=== PATIENT | female | born 1995 | race Caucasian/White ===

== ENCOUNTER 2017-09-23 15:31 | Observation (INO) ==
[2017-09-23 16:06] LABS: Amphetamine Screen,Urine Negative ng/mL (Cutoff=1000); Barbiturate Screen,Urine Negative ng/mL (Cutoff=200); Benzodiazepines Screen,Urine Negative ng/mL (Cutoff=200); Cannabinoid Screen,Urine Negative ng/mL (Cutoff = 50); Cocaine Screen,Urine Negative ng/mL (Cutoff= 300); Opiate Screen,Urine Negative ng/mL (Cutoff=300); Phencyclidine Screen,Urine Negative ng/mL (Cutoff=25); Protein/Creatinine Ratio,Urine 0.17 mg/mg (0.00-0.20)
[2017-09-23 16:14] LABS: Alanine Aminotransferase 10 Units/L (7-52); Aspartate Amino Transferase 14 Units/L (13-39); BUN/Creatinine Ratio 24 (6-26); Blood Urea Nitrogen 11 mg/dL (6-20); Lactate Dehydrogenase 146 Units/L (140-271); Uric Acid 3.5 mg/dL (2.3-7.6); eGFR For African Americans > 60 (> 60); eGFR For Non-African Americans > 60 (> 60)
[2017-09-23 16:43] LABS: Basophils % 0.2 %; Eosinophils # 0.1 K/mcL (0.0-0.6); Eosinophils % 0.7 %; Hematocrit 37.1 % (35.3-44.9); Hemoglobin 12.4 g/dL (11.5-15.4); Immature Granulocytes % 1.4 % (0-4); Lymphocytes # 2.4 K/mcL (0.6-4.6); Lymphocytes % 20.1 %; Mean Corpuscular HGB Conc 33.4 g/dL (31.6-35.5); Mean Corpuscular Hemoglobin 32.3 pg (28.0-33.3); Mean Corpuscular Volume 96.6 fL (83.0-100.0); Mean Platelet Volume 11.3 fL (9.4-12.4); Monocytes # 0.9 K/mcL (0.0-1.3); Monocytes % 7.5 %; Neutrophils # 8.5 K/mcL (1.6-8.9); Platelet Count 230 K/mcL (140-400); Red Blood Count 3.84 M/mcL (3.82-4.97); Red Cell Distribution Width 12.8 % (11.5-14.5); Segmented Neutrophils % 70.1 %
--- NOTE | 2017-09-23 17:00 | OB/GYN Progress Note ---
Date of Encounter: 09/23/17 Time of Encounter: 16:51 - Assessment and Plan (1) 39 weeks gestation of Current Visit: Yes Status: Acute (2) Decreased movement Current Visit: Yes Status: Acute NST reactive, no decelerations. Good FM while in triage. Discharge home with precautions. Pt to follow-up for NST in office on Thursday. Qualifiers: Fetus number: single or unspecified fetus Trimester: third trimester Qualified Code(s): O36.8130 - Decreased movements, third trimester, not applicable or unspecified (3) Elevated blood pressure affecting in third trimester, antepartum Current Visit: Yes Status: Acute BP 140/90 in office. BP's all normal in triage. PIH labs all normal. Subjective - Subjective Principal diagnosis: decreased movement Interval history: Patient is alert and oriented presents to L&D from office with c/o decreased movements. NST reactive, 2 excels in 30 minutes, sent to L&D for further monitoring. Patient denies headache or blurred vision. Reports had discharge times two this am that was pinkish in color and dime size, denies any leakage of fluid. Reports she felt the baby started moving less last night around 1800. She does report movement 6 times in one hour and contractions 5 times in one hour. Denies any unusual pain or shortness of breath. Antepartum ROS: contractions, no loss of fluid, no vaginal bleeding Objective - Vital Signs Vital Signs: Intake and Output 09/23/17 09/23/17 09/23/17 07:59 15:59 23:59 Other: Weight 79.5 kg Patient Weight 09/23/17 23:59 Weight 79.5 kg - Exam FHR: category 1 FHR comments: NST reactive Auscultation: bilateral: normal Abdomen: Present: soft, gravid Uterus: Present: normal. Absent: tenderness - Labs Labs: Abnormal lab results WBC 12.1 K/mcL (4.3-11.1) H 09/23/17 15:40 Creatinine 0.45 mg/dL (0.60-1.20) L 09/23/17 15:40 Urine Total Protein 21 mg/dL (1-14) H 09/23/17 15:40
== END 2017-09-23 17:23 | disposition home or self-care (01) ==
LOC: 1NENULAB
PROVIDERS: ADMIT Registered Nurse; ATTEND Registered Nurse

== ENCOUNTER 2017-09-23 23:27 | Inpatient (IN) ==
--- NOTE | 2017-09-23 23:25 | OB/GYN History & Physical ---
Date of Encounter: 09/23/17 Time of Encounter: 23:19 Assessment and Plan (1) Spontaneous onset of labor Current visit: Yes Status: Acute SVE 3/100/-1 which has changed from 1cm earlier today. Bloody show noted BBOW GBS negative Admit for labor. Epidural if requested. Anticipate . (2) 39 weeks gestation of Current visit: No Status: Acute History of Present Illness Chief complaint: contractions HPI: Ms. Sewell is a 22 year old female presenting at 39w3d with c/o contractions that are back to back and painful. She denies LOF. She does report some bloody show. Good FM. This has been uncomplicated. Blood type A negative Rubella non-immune GBS negative Serologies negative Past Med Surg Social Fam HX - Past Medical History Medical history: asthma, GERD Psychiatric history: no psych history - Past Surgical History Surgical History: no surgical history - Social History Smoking Status: Never smoker Smokeless Tobacco Status: No Alcohol use: none Drug use: none - Family History Mother History Unknown: Yes Living Status: Still Living Hx Family Cardiac Disorders: No Hx Family Respiratory Disorders: No Hx Family Cancer: No Hx Family GI Disorders: No Hx Family Endocrine Disorder: No Hx Family Neuromuscular Disorders: No Hx Family Neurologic Disorders: No Hx Family HEENT Disorders: No Hx Family Autoimmune Disorders: No Obstetrical History - Pregnancies : 1 Medications and Allergies Albuterol Sulfate [Ventolin Hfa] 2 puff IN Q4H PRN 03/05/16 [History] Tablet 1 tab PO DAILY 09/23/17 [History] 3 Allergy/AdvReac Type Severity Reaction Status Date / Time No Known Allergies Allergy Verified 09/23/17 15:45 Review of System OB All systems PM: reviewed and no additional remarkable complaints except as stated Exam - Constitutional Constitutional: well developed, well nourished, no acute distress - HEENT HEENT: Mucus Membranes Moist - Lungs Respiratory exam: CTAB - Cardiovascular Cardiovascular exam: RRR, +S1, +S2 - Abdomen Abdomen: Present: gravid, non tender - Extremities Deep Tendon Reflex Grade: 2+ Normal - Cervix Dilation: 3 Effacement: 100 (BBOW) Station: -1 - Anus/Rectum Anus/Rectum: Present: normal perianal skin Results All other labs normal.
[~2017-09-23 23:27] MED LIST: *HR* Nalbuphine 10 MG/ML AMPUL IVP PRN; Famotidine 20 MG/2 ML VIAL IVP PRN; Metoclopramide 10 MG/2 ML VIAL IVP PRN; Naloxone 0.4 MG/ML INJ IVP PRN; Ondansetron 4 MG/2 ML VIAL IVP PRN
[2017-09-23] MEDS ORDERED: Ringers Solution, Lactated 1,000 ML IVC SCH (23:30)
[2017-09-24] MEDS ORDERED: Oxytocin 20 units/ LR 1000 mL 20 UNIT/1,000 ML BAG IVC ONE (00:19)
[2017-09-24] MEDS ORDERED: Epidural Premix (fent/bupiv) 110 ML EP SCH (01:00)
[2017-09-24] MEDS ORDERED: *HR* FentaNYL (PF) 100 MCG/2 ML VIAL EP ONE (01:00)
[2017-09-24] MEDS ORDERED: Bupivacaine-MPF 0.25% 10 ML VIAL EP ONE (01:00)
[2017-09-24] MEDS ORDERED: Epidural Premix (fent/bupiv) 110 ML EP ONE (01:05)
--- NOTE | 2017-09-24 01:42 | Anesthesia Evaluation PreOp ---
Date of Encounter: 09/24/17 Time of Encounter: 01:40 - Past History Planned Operation: NANCY Cardiac History: Denies any Significant Hx Pulmonary History: Asthma INFRASTRUCTURE PROJECT MANAGER History: Denies Any Significant HX Other Medical History: Denies Any Significant HX Anesthesia History: No Prior Anesthetic Complications (never had any procedure requiring NA or GA; denies family h/o GA complications) : Yes Test: Positive Alcohol Use: none Drug use: none Medications and Allergies Albuterol Sulfate [Ventolin Hfa] 2 puff IN Q4H PRN 03/05/16 [History] Tablet 1 tab PO DAILY 09/23/17 [History] 3 Allergy/AdvReac Type Severity Reaction Status Date / Time No Known Allergies Allergy Verified 09/23/17 15:45 - Meds/Allergy Pre-op Review Medications Reviewed: Yes Allergies Reviewed: Yes Beta Blockers on Current Med List: No Anesthesia Exam 133/81 HR 93, RR 24 O2 Sat Height 1.73 m Height 1.73 m Weight 78.744 kg Weight 78.642 kg NPO (# of Hours): solids > 5hrs Pain Scale: 10 Pain Scale Used: Curry-Hdz (Faces) - HEENT Pupil (Motor): Pupils equal Mallampati: II Teeth: Normal Oral Opening: Greater than 3 - INFRASTRUCTURE PROJECT MANAGER LOC: Oriented INFRASTRUCTURE PROJECT MANAGER Motor: Normal RUE, Normal LUE, Normal RLE, Normal LLE, Normal Face INFRASTRUCTURE PROJECT MANAGER Sensory: Normal: RUE, LUE, RLE, LLE, Face - Cardiac Rhythm: Regular Murmur: None - Pulmonary Breath Sounds: bilateral Clear Respiratory Effort: Symmetrical Anesthesia Assess/Plan ASA Score: 2 Modified [place] Scale for Level of Consciousness: Anixous, agitated or restless Anesthetic Plan: Regional Autologous Blood: No Monitoring Plan: Standard Monitors Recovery Plan: Other
--- NOTE | 2017-09-24 01:44 | Anesthesia Procedures ---
Date of Encounter: 09/24/17 Time of Encounter: 01:42 Procedures: Anesthesia - Epidural/Spinal Patient ID/Chart reviewed: Yes Patient examined: Yes OB Eval: Gestational age: 39 weeks 3 days OB Eval: : 1 OB Eval: Hx Para: 0 OB Eval: Dilated at (cm): 5 OB Eval: Contractions: Non-stressed pattern Consent Obtained: Yes Supplemental Oxygen: None/Room Air Site Prep: Aseptic Technique, Sterile prep and drape, Povidone-Iodine 1% Patient position: upright Local Anesthetic: Lidocaine 1% Amount of Local Anesthetic used: 3 Touhy Needle Gauge: 18 Touhy Needle Depth (cm): 4 Catheter Depth at Skin (cm): 9 Test Dose (1.5% Lido + Epi): Volume given (mls): 5 Test Dose Result: Negative Loading Dose: 0.25% Marcaine (mls): 5 Loading Dose: Fentanyl (mcg): 100 Loading Dose Administered: Thru Catheter Infusion Med: 0.125% Bupivacaine w/ 2 mcg/ml Fentanyl Infusion Rate (mls/hr): 14 (w/ demand bolus of 5mL q30min PRN) Catheter Secured in Place: Tegaderm, Tape Interspace Used: L3-L4 Loss of Resistance (SUMIT): Yes Blood: No CSF: No Paresthesia: No Procedure: successful on 2nd attempt Vitals + FHT's: please see [facility]'s electronic charting
[2017-09-24] MEDS ORDERED: *HR* Ropivacaine/PF 0.2% 20 ML VIAL EP ONE (01:56)
--- NOTE | 2017-09-24 02:42 | Anesthesia Progress Note ---
Date of Encounter: 09/24/17 Time of Encounter: 02:39 Anesthesia Note - Note Note: Pt still uncomfortable despite 100mcg fentanyl + 5mL of 0.25% bupivicaine initial bolus so at approximately 0200, another 5mL of 0.25% bupivicaine administered. At 0215, pt still uncomfortable and BP elevated so catheter pulled back to 8cm deejay at skin and 10mL of 0.2% ropivicaine administered. At 0225, pt reports R sided pain relief but feeling contractions on L side so patient positioned L side down and additional 10mL of 0.2% ropivicaine administered. At 0240 patient reports satisfactory labor analgesia. VSS 09/24/17 02:39
--- NOTE | 2017-09-24 05:54 | OB/GYN Procedure Note ---
Delivery - Delivery Date: 09/24/17 Provider: Shannan Livingston Intrapartum events: none Delivery induction: none Delivery monitor: external FHT, external uterine Anesthesia: epidural Estimated Blood Loss: 400 - (s) A Infant Delivery Date: 09/24/17 Delivery Time: 05:05 Presentation: vertex Position: RONY Route of delivery: Gender: Male Viability: Viable Pounds: 7 Ounces: 9 Weight Gram: 3420 kg at 1 minute: 9 at 5 mins: 9 Shoulder Dystocia: not encountered Specimens collected: cord blood Placenta: spontaneous, uterine exploration (small amount membrane manually removed) Cord: 3 umbilical vessels - Repair Episiotomy: none Laceration Description: Vaginal (left vaginal) - Complications Delivery complications: none Delivery comments: Pt presented in active labor and progressed normally to for viable male weighing 7lbs 9oz with apgars 9 at one minute and 9 at five minutes. After pulsations ceased the cord was clamped and cut and the placenta delivered spontaneous and intact. A small amount of membrane was manually removed. A left vaginal laceration was repaired with 2-0 Monocryl. EBL 400ml. Mother and baby stable in kangaroo care following delivery. - Disposition Mom disposition: stable in LDR [place] disposition: stable in LDR
[2017-09-24] MEDS ORDERED: Oxytocin 20 units/ LR 1000 mL 20 UNIT/1,000 ML BAG IVC SCH (08:08)
[2017-09-24] MEDS ORDERED: Acetaminophen 325 MG TABLET PO PRN (08:08)
[2017-09-24] MEDS ORDERED: Measles/Mumps/Rubella Vacc 0.5 ML VIAL SQ PRN (08:08)
[2017-09-24] MEDS ORDERED: Rho Immune Globulin 1,500 UNIT SYRINGE IM PRN (08:08)
[2017-09-24] MEDS ORDERED: Lanolin 28 GM TUBE TP PRN (08:08)
[2017-09-24] MEDS ORDERED: Benzocaine/Menthol 56 GM AEROSOL SPRAY TP PRN (08:08)
[2017-09-24] MEDS: Prenatal Vit/FA 1 EACH TABLET PO SCH (08:51)
[2017-09-24] MEDS: Ibuprofen 600 MG TABLET PO PRN ×2 (08:52→20:38)
[2017-09-24] MEDS ORDERED: Ondansetron ODT 4 MG TAB.RAPDIS SL PRN (18:38)
[2017-09-25 07:44] VITALS: BP 95/60
[2017-09-25] MEDS: Prenatal Vit/FA 1 EACH TABLET PO SCH (07:44)
--- NOTE | 2017-09-25 09:26 | Discharge Summary ---
Date of Encounter: 09/25/17 Time of Encounter: 09:24 - Discharge Diagnosis (1) Status post vaginal delivery Priority: Primary Status: Acute Comments: discharge home today follow up in office in 4-6 weeks (2) Breast feeding status of mother Priority: Secondary Status: Acute Comments: lactations support prn - Discharge Medications Home Medications: Albuterol Sulfate [Ventolin Hfa] 2 puff IN Q4H PRN 03/05/16 [History] Tablet 1 tab PO DAILY 09/23/17 [History] Benzocaine/Menthol [place] [Dermoplast [place]] 1 appl TP QID PRN aerosol 09/25/17 [Rx] Ibuprofen [Motrin] 600 mg PO Q6HR PRN tablet 09/25/17 [Rx] Lanolin 1 appl TP Q4HR PRN tube 09/25/17 [Rx] Vit/FA 1 each PO DAILY tablet 09/25/17 [Rx] Allergies/Adverse Reactions: 3 Allergy/AdvReac Type Severity Reaction Status Date / Time No Known Allergies Allergy Verified 09/23/17 15:45 Data Procedures and tests throughout hospitalization: Laboratory Tests 09/24/17 05:31 Screen NEGATIVE Baby's Blood Type O RH POSITIVE Mother's Blood Type A RH NEGATIVE Rhogam Indicated YES Rhogam Req for Mother 1 Date of admission: 09/23/17 23:28 Primary care physician: Ryan Castillo MD Consults: 09/24/17 08:08 Consult to Warehouse Production Worker [CONS] Routine Comment: Vaginal delivery, consult needed 09/24/17 08:34 Consult to Thoroughbred Horse Farm Manager ([facility]&[employer]) [CONS] Stat Reason For Exam: Risk from PPD Reason for SW Consult: History of depression and self mutilation. Delivered this morning. Discharging clinician: Kristyn Finley Anticipated date of discharge: 09/25/17 - Patient Status Disposition: Home, Self-Care Condition: Good Functional capacity at discharge: independent ambulation - Discharge Instructions Follow Up With: Ryan Castillo MD [Primary Care Provider] - Shannan Livingston CNM [Non-Partnered Physician] - - Diet and Activity Activity: increase activity as tolerated Diet: regular diet Hospital Course Reason for admission: active labor Delivery: Episiotomy: none Laceration: other (labial) complications: none Discharge diagnosis: IUP at term delivered baby: male (breast feeding) Time Attestation: Total time spent providing and/or coordinating discharge services: Time Spent: Less than 30 minutes Exam - Constitutional Vitals: Temp Pulse Resp BP Pulse Ox 98.0 F 87 16 95/60 96 09/25/17 07:43 09/25/17 07:43 09/25/17 07:43 09/25/17 07:43 09/25/17 05:00 General appearance IM: A&O X 3, pleasant, answers questions appropriately - Respiratory Respiratory exam: Present: CTAB - Cardiovascular Cardiovascular exam IM: Present: RRR, +S1, +S2 - GI/Abdominal GI/Abdominal exam IM: normal bowel sounds - Uterine Tone: Firm Uterus Position: 2 Fingers Below Umbilicus, Midline - Extremities Exam Extremities exam IM: Present: full ROM, normal capillary refill, normal inspection - Neurological Exam Neurological exam: alert, oriented X3, reflexes normal
== END 2017-09-25 15:41 | disposition home or self-care (01) | DRG 775 ==
LOC: 1NENULAB → 1NENUOBS 09-24 07:55
PROVIDERS: ADMIT Registered Nurse; ATTEND Registered Nurse

== ENCOUNTER 2021-09-27 23:20 | Inpatient (IN) ==
[~2021-09-27 23:20] MED LIST changes: -*HR* Nalbuphine 10 MG/ML AMPUL IVP PRN
[2021-09-27] MEDS ORDERED: Ringers Solution, Lactated 1,000 ML IVC SCH (23:30)
[2021-09-27] MEDS ORDERED: Epidural Premix (fent/bupiv) 110 ML EP SCH (23:45)
[2021-09-27 23:47] LABS: Basophils % 0.3 %; Eosinophils # 0.1 K/mcL (0.0-0.6); Eosinophils % 0.4 %; Hematocrit 36.1 % (35.3-44.9); Hemoglobin 11.9 g/dL (11.5-15.4); Immature Granulocytes % 1.5 % (0-4); Lymphocytes # 2.2 K/mcL (0.6-4.6); Lymphocytes % 15.7 %; Mean Corpuscular Hemoglobin 31.6 pg (28.0-33.3); Mean Platelet Volume 10.7 fL (9.4-12.4); Monocytes % 7.3 %; Neutrophils # 10.2 K/mcL (1.6-8.9); Platelet Count 197 K/mcL (140-400); Red Blood Count 3.76 M/mcL (3.82-4.97); Red Cell Distribution Width 13.6 % (11.5-14.5); Segmented Neutrophils % 74.8 %; White Blood Count 13.7 K/mcL (4.3-11.1)
[2021-09-27] MEDS ORDERED: *HR* FentaNYL (PF) 100 MCG/2 ML VIAL EP ONE (23:47)
[2021-09-27] MEDS ORDERED: Ropivacaine/PF 0.2% 20 ML VIAL EP ONE (23:47)
[2021-09-27] MEDS ORDERED: EPHEDrine 50 MG/ML VIAL IVP PRN (23:47)
[2021-09-28 00:42] LABS: Influenza A PCR Negative (Negative); Influenza B PCR Negative (Negative); Resp. Syncytial Virus PCR Negative (Negative)
[2021-09-28 00:43] LABS: SARS-CoV-2 by PCR (In House) Negative (Negative)
[2021-09-28] MEDS ORDERED: Oxytocin 30 UNIT/503 ML BAG IVC SCH ×2 (01:15→04:37)
[2021-09-28] MEDS ORDERED: Ropivacaine/PF 0.2% 20 ML VIAL ONE (01:19)
[2021-09-28] MEDS ORDERED: *HR* FentaNYL (PF) 100 MCG/2 ML VIAL ONE (01:19)
[2021-09-28] MEDS ORDERED: Methylergonovine 0.2 MG/ML AMPUL IM ONE (02:10)
[2021-09-28] MEDS ORDERED: miSOPROStoL 100 MCG TABLET RC ONE (02:10)
[2021-09-28] MEDS ORDERED: Lanolin 7 G OINT...G. TP PRN (04:37)
[2021-09-28] MEDS ORDERED: Benzocaine/Menthol 56 GM AEROSOL SPRAY TP PRN (04:37)
[2021-09-28] MEDS ORDERED: Rho Immune Globulin 1,500 UNIT SYRINGE IM PRN (04:37)
[2021-09-28] MEDS ORDERED: OXYTOCIN/RINGERS LACTATE 10 UNIT/166.6 ML BAG IVC ONE (04:37)
[2021-09-28] MEDS ORDERED: Measles/Mumps/Rubella Vacc 0.5 ML VIAL SQ PRN (04:37)
[2021-09-28] MEDS ORDERED: Ondansetron ODT 4 MG TAB.RAPDIS SL PRN (04:37)
[2021-09-28] MEDS: Ibuprofen 600 MG TABLET PO SCH ×3 (05:55→20:17)
[2021-09-28] MEDS: Acetaminophen 325 MG TABLET PO SCH ×3 (05:55→20:17)
[2021-09-28] MEDS: Prenatal Vit/FA 1 EACH TABLET PO SCH (08:16)
[2021-09-28] MEDS: Sucralfate 1 GM TABLET PO SCH ×2 (08:17→18:24)
[2021-09-28 21:48] VITALS: TEMP 98.4; O2SAT 98
[2021-09-29 08:16] VITALS: BP 112/77; PULSE 77
[2021-09-29] MEDS: Prenatal Vit/FA 1 EACH TABLET PO SCH (09:07)
[2021-09-29] MEDS: Ibuprofen 600 MG TABLET PO SCH (09:09)
[2021-09-29] MEDS: Acetaminophen 325 MG TABLET PO SCH (09:09)
[2021-09-29] MEDS: Sucralfate 1 GM TABLET PO SCH (09:19)
== END 2021-09-29 12:30 | disposition home or self-care (01) | DRG 560 ==
LOC: 1NENULAB → 1NENUOBS 09-28 04:42
PROVIDERS: ADMIT Advanced Practice Midwife; ATTEND Advanced Practice Midwife